=== PATIENT | female | born 1965 | race Caucasian/White ===

== ENCOUNTER 2019-05-21 11:39 | Emergency (ER) | payer BC ==
[~2019-05-21] VITALS: Ht 170.2 cm; Wt 80.6 kg
--- NOTE | 2019-05-21 12:08 | PHYS DOC ---
Past History Past Medical History: No Pertinent History Alcohol Use: Rarely Drug Use: None General Adult EDM: Chief Complaint: SYNCOPE HPI: HPI: 53-year-old female who presents for evaluation of syncope. She had a syncopal episode falling out of her Jeep 4 days ago. Her was able to catch her prior to any head injury. This is preceded by a warm sensation with tingling of the bilateral lower extremities that began to progress superiorly. She is also having intermittent tingling of the bilateral fingertips and toes. No prior history of anxiety or panic. No chest pain, dyspnea, outpatient, headache or vision changes, focal weakness, dizziness. Review of Systems: Review of Systems: General: No fevers, chills. Eyes: No blurred vision, diplopia. ENT: No nasal congestion, sore throat. CV: No chest pain, edema. Reports syncope. Resp: No shortness of breath, cough. GI: No abdominal pain, nausea, vomiting. : No dysuria, hematuria. Neuro: No headache, dizziness, weakness. Reports tingling sensation. MSK: No myalgia, arthralgia, back pain. Skin: No acute rash, lesion. Heart Score: Risk Factors: Risk Factors: DM, Current or recent (<one month) smoker, HTN, HLP, family history of CAD, obesity. Risk Scores: Score 0 - 3: 2.5% MACE over next 6 weeks - Discharge Home Score 4 - 6: 20.3% MACE over next 6 weeks - Admit for Clinical Observation Score 7 - 10: 72.7% MACE over next 6 weeks - Early Invasive Strategies Physical Exam: PE: Gen: NAD. Well nourished. Head: NC/AT Eyes: No scleral icterus. No conjunctival injection. PERRL. ENT: MMM. Posterior OP clear. Neck: Supple. NT. CV: RRR. Peripheral pulses intact. Resp: CTAB. Abd: Soft. NT. ND. MSK: No peripheral cyanosis. No edema. Neuro: A&Ox3. Strength & sensation grossly intact throughout. No dysmetria. No aphasia or dysarthria. No visual field cut. No facial asymmetry. No jason- neglect. NIH stroke score 0. Skin: Warm. Dry. Psych: Appropriate mood & affect. EKG: EKG: EKG at 1158. Sinus rhythm. Heart rate 67. Normal intervals. No STEMI. Interpreted by me. Radiology/Procedures: Radiology/Procedures: EXAM: Chest, single view. HISTORY: Syncope. COMPARISON: None. FINDINGS: A frontal view of the chest is obtained. There is no infiltrate, pleural effusion or pneumothorax. There is a prominent cardiac silhouette. IMPRESSION: No acute pulmonary finding. Electronically signed by: Ingrid Knox MD (05/21/2019 12:23 PM) [id number] EXAM: CT HEAD WITHOUT CONTRAST. HISTORY: Syncope. TECHNIQUE: Computed tomography of the head was performed without intravenous contrast. One or more of the following individualized dose reduction techniques were utilized for this examination: 1. Automated exposure control. 2. Adjustment of the mA and/or kV according to patient size. 3. Use of iterative reconstruction technique. COMPARISON: None. FINDINGS: There is no intracranial hemorrhage. Small foci of hypoattenuation within the left parietal white matter most likely reflect mild chronic microangiopathic change. The ventricles are normal in size and position. The visualized paranasal sinuses appear clear. The orbits are unremarkable. The temporal bones are unremarkable. The calvarium reveals no suspicious lesions. There are atherosclerotic calcifications of the vertebral arteries. IMPRESSION: 1. No acute intracranial findings. 2. Scattered small foci of white matter hypoattenuation are nonspecific but most likely reflect mild chronic microangiopathic change. Electronically signed by: Carmen Chamberlain MD (05/21/2019 12:24 PM) [id number] Course & Med Decision Making: Course & Med Decision Making Pertinent Labs and Imaging studies reviewed. (See chart for details) In summary, 53-year-old female who presents for evaluation of syncopal episode without injury 4 days ago, preceded by bilateral tingling and "warmth". Hemodynamically stable. Unremarkable cardiorespiratory and neurological examination. Doubt stroke given bilaterality of the paresthesia. EKG shows no acute injury pattern. Troponin negative. Lab work is otherwise unremarkable with the exception of mildly elevated BUN/creatinine ratio, receiving IV fluid bolus. Noncontrast head CT is negative. Chest x-ray clear. The patient otherwise is well-appearing and nontoxic. I feel that the patient is otherwise low risk from a risk stratification standpoint in terms of syncope. Outpatient PMD follow-up. Return precautions given. Juliana Disclaimer: Juliana Disclaimer: This electronic medical record was generated, in whole or in part, using a voice recognition dictation system. Departure Departure: Impression: Primary Impression: Syncope Additional Impression: Paresthesia Disposition: 01 HOME, SELF-CARE Condition: STABLE Referrals: PCPAURORA (PCP) Patient Instructions: Syncope Additional Instructions: Please follow up with your primary physician. Increase your fluid intake. YANIRA DON DO May 21, 2019 12:08
[2019-05-21] MEDS ORDERED: IV NORMAL SALINE 1,000ML 1,000 ML IV ONE (12:15)
--- NOTE | 2019-05-21 12:25 | EKG ---
[address] [address] Test Date: 2019-05-21 Test Time: 11:58:01 Pat Name: RICHARD DON Department: Room: Gender: F [employer] Dis[employer]: : 1965 Requested By: YANIRA DON Order Number: [id number] Reading MD: Jonel Hurtado Measurements Intervals [place] Rate: 67 P: 39 [place]: 178 QRS: 48 QRSD: 90 T: 45 QT: 390 QTc: 415 Interpretive Statements SINUS RHYTHM Electronically Signed On 05-23-2019 10:02:24 CDT by Jonel Hurtado
--- NOTE | 2019-05-21 12:26 | RAD ---
EXAM: CT HEAD WITHOUT CONTRAST. HISTORY: Syncope. TECHNIQUE: Computed tomography of the head was performed without intravenous contrast. One or more of the following individualized dose reduction techniques were utilized for this examination: 1. Automated exposure control. 2. Adjustment of the mA and/or kV according to patient size. 3. Use of iterative reconstruction technique. COMPARISON: None. FINDINGS: There is no intracranial hemorrhage. Small foci of hypoattenuation within the left parietal white matter most likely reflect mild chronic microangiopathic change. The ventricles are normal in size and position. The visualized paranasal sinuses appear clear. The orbits are unremarkable. The temporal bones are unremarkable. The calvarium reveals no suspicious lesions. There are atherosclerotic calcifications of the vertebral arteries. IMPRESSION: 1. No acute intracranial findings. 2. Scattered small foci of white matter hypoattenuation are nonspecific but most likely reflect mild chronic microangiopathic change. Electronically signed by: Carmen Chamberlain MD (05/21/2019 12:24 PM) [id number]
--- NOTE | 2019-05-21 12:26 | RAD ---
EXAM: Chest, single view. HISTORY: Syncope. COMPARISON: None. FINDINGS: A frontal view of the chest is obtained. There is no infiltrate, pleural effusion or pneumothorax. There is a prominent cardiac silhouette. IMPRESSION: No acute pulmonary finding. Electronically signed by: Ingrid Knox MD (05/21/2019 12:23 PM) [id number]
[2019-05-21 13:19] LABS: BASO # 0.1 x10^3/uL (0.0-0.2); BASO % 1 % (0-3); EOS # 0.2 x10^3/uL (0.0-0.7); EOS % 4 % (0-3); HEMATOCRIT 37.4 % (36.0-47.0); HEMOGLOBIN 12.4 g/dL (12.0-15.5); LYMPH # 1.6 x10^3/uL (1.0-4.8); LYMPH % 33 % (24-48); MEAN CORPUSCULAR HEMOGLOBIN 31 pg (25-35); MEAN CORPUSCULAR HGB CONC 33 g/dL (31-37); MEAN CORPUSCULAR VOLUME 93 fL (79-100); MONO # 0.5 x10^3/uL (0.0-1.1); MONO % 11 % (0-9); NEUT # 2.4 x10^3uL (1.8-7.7); NEUT % 51 % (31-73); PLATELET COUNT 208 x10^3/uL (140-400); RED BLOOD COUNT 4.01 x10^6/uL (3.50-5.40); RED CELL DISTRIBUTION WIDTH 15.1 % (11.5-14.5); WHITE BLOOD COUNT 4.8 x10^3/uL (4.0-11.0)
[2019-05-21 13:22] LABS: CALCIUM 9.1 mg/dL (8.5-10.1); CREATININE 0.7 mg/dL (0.6-1.0); GFR 86.9; POTASSIUM 4.4 mmol/L (3.5-5.1)
[2019-05-21 13:28] LABS: ALBUMIN 3.6 g/dL (3.4-5.0); ALBUMIN/GLOBULIN RATIO 1.4 (1.0-1.7); MAGNESIUM 1.9 mg/dL (1.8-2.4); TOTAL BILIRUBIN 0.4 mg/dL (0.2-1.0); TOTAL PROTEIN 6.2 g/dL (6.4-8.2)
[2019-05-21 14:47] VITALS: BP 154/65
== END 2019-05-21 14:42 | disposition home or self-care (01) ==
LOC: ER 11:39
DX: R55 Syncope and collapse (principal); R20.2 Paresthesia of skin; V98.8XXA Other specified transport accidents, initial encounter; Y93.89 Activity, other specified; Y92.89 Other specified places as the place of occurrence of the external cause; Y99.8 Other external cause status
CPT/HCPCS: 36415; 70450; 71045; 80053; 83735; 84484; 85025; 93005; 96360; 99285-25; J7030

== ENCOUNTER 2019-11-18 04:45 | Emergency (ER) | payer BC ==
[~2019-11-18] VITALS: Ht 152.4 cm; Wt 86.0 kg
[2019-11-18] MEDS ORDERED: IV RINGERS SOLUTION,LACTATED 1,000 ML IV SCH (05:09)
[2019-11-18] MEDS ORDERED: MORPHINE SULFATE 2 MG/ML DISP.SYRIN. IV/SQ PRN (05:15)
[2019-11-18] MEDS ORDERED: ONDANSETRON PF 4 MG/2 ML VIAL. IVP ONE (05:15)
--- NOTE | 2019-11-18 05:16 | PHYS DOC ---
Past History Past Medical History: No Pertinent History (CANDACE DISLA MD) Past Surgical History: Appendectomy (CANDACE DISLA MD) Alcohol Use: None Drug Use: None (CANDACE DISLA MD) General Adult EDM: Chief Complaint: ABDOMINAL PAIN HPI: HPI: Patient is a 54-year-old female coming in for right upper quadrant abdominal pain and distention. States over the past month she has had worsening pain mostly on the right but feels like her abdomen is distended now. Has had intermittent constipation and diarrhea. Denies any change in urination. Also has had a couple episodes of emesis. Feels like she is unable to eat due to the fullness of her abdomen. No fevers, cough, chest pain, urinary complaints. Patient states the pain was initially localized to the right upper quadrant but now radiates around her back and front of her abdomen. Emesis has been nonbloody nonbilious. Denies any blood in her stools. Has surgical history of appendectomy and lumpectomy. Has a family history significant for breast cancer in her mother. Fair water but denies any significant alcohol or IV drug use. (CANDACE DISLA MD) Review of Systems: Review of Systems: Constitutional: Denies fever or chills Eyes: Denies change in visual acuity HENT: Denies nasal congestion or sore throat Respiratory: Denies cough or shortness of breath Cardiovascular: Denies chest pain or edema GI: Abdominal pain or distention, worse on right. Nausea and vomiting, intermittent diarrhea and constipation : Denies dysuria Musculoskeletal: Denies back pain or joint pain Integument: Denies rash Neurologic: Denies headache, focal weakness or sensory changes Endocrine: Denies polyuria or polydipsia Lymphatic: Denies swollen glands Psychiatric: Denies depression or anxiety (CANDACE DISLA MD) Heart Score: Risk Factors: Risk Factors: DM, Current or recent (<one month) smoker, HTN, HLP, family history of CAD, obesity. Risk Scores: Score 0 - 3: 2.5% MACE over next 6 weeks - Discharge Home Score 4 - 6: 20.3% MACE over next 6 weeks - Admit for Clinical Observation Score 7 - 10: 72.7% MACE over next 6 weeks - Early Invasive Strategies (CANDACE DISLA MD) Allergies: Allergies: Allergies Coded Allergies Type Severity Reaction Last Updated Verified No Known Drug Allergies 05/21/19 No (CANDACE DISLA MD) Physical Exam: PE: Constitutional: Well developed, well nourished, no acute distress, non-toxic appearance. [] HENT: Normocephalic, atraumatic, bilateral external ears normal, oropharynx moist, no oral exudates, nose normal. [] Eyes: PERRLA, EOMI, conjunctiva normal, no discharge. [] Neck: Normal range of motion, no tenderness, supple, no stridor. [] Cardiovascular:Heart rate regular rhythm, no murmur [] Lungs & Thorax: Bilateral breath sounds clear to auscultation [] Abdomen: Guarding, positive Deluca's, no rebound, no fluid wave [] Skin: Warm, dry, no erythema, no rash. [] Back: No tenderness, no CVA tenderness. [] Extremities: No tenderness, no cyanosis, no clubbing, ROM intact, no edema. [] Neurologic: Alert and oriented X 3, normal motor function, normal sensory function, no focal deficits noted. [] Psychologic: Affect normal, judgement normal, mood normal. [] (CANDACE DISLA MD) PE: Constitutional: Well developed, well nourished, no acute distress, non-toxic appearance HENT: Normocephalic, atraumatic Eyes: Conjunctiva normal, no discharge Neck: Normal range of motion, no tenderness, supple Lungs & Thorax: No respiratory distress, equal chest rise and fall Abdomen: Distended, right upper and lower quadrant tenderness on palpation, no rebound tenderness, no guarding Skin: Warm, dry, no erythema, no rash Neurologic: Alert and oriented X 3, no focal deficits noted Psychologic: Affect normal, judgment normal (JEANNE HANNA DO) Current Patient Data: Vital Signs: Vital Signs Date Time Temp Pulse Resp B/P (MAP) Pulse Ox O2 Delivery O2 Flow Rate FiO2 11/18/19 05:03 97.6 92 18 143/116 (125) 97 Room Air (CANDACE DISLA MD) EKG: EKG: [] (CANDACE DISLA MD) Radiology/Procedures: Radiology/Procedures: [] (CANDACE DISLA MD) Radiology/Procedures: PROCEDURE: CT ABD PELV W/ IV CONTRST ONLY Exam: CT abdomen/pelvis with intravenous contrast Indication: Right upper quadrant abdominal pain Comparison: None Technique: Helical CT imaging performed of the abdomen and pelvis after administration of 75 mL Omnipaque 300 intravenous intravenous contrast. Sagittal and coronal reformats were obtained. One or more of the following individualized dose reduction techniques were utilized for this examination: 1. Automated exposure control 2. Adjustment of the mA and/or kV according to patient size 3. Use of iterative reconstruction technique. Findings: Inherently limited evaluation without intravenous contrast. Lower chest: The lung bases are clear. The heart is normal in size. Liver: The liver is normal in size. A subcentimeter hypodensity in the left hepatic lobe is too small characterize. Gallbladder/Biliary Tree: Normal. Pancreas: Normal. Spleen: Normal. Adrenal Glands: Normal. Kidneys/Ureters/Bladder: Kidneys are normal. Ureters are nondistended. Urinary bladder is decompressed. Reproductive Organs: The uterus and ovaries are not well-visualized. Stomach, small bowel, and colon: Normal. Vasculature: IVC is flattened by a large cystic mass, described below. The abdominal aorta is normal in caliber. Mild calcified aortic atherosclerosis. Lymph Nodes: No lymphadenopathy. Peritoneum and retroperitoneum: There is a large cystic mass in the abdomen and pelvis measuring 27.4 x 26.0 x 14.8 cm (CC by transverse by AP), extending from the pelvis to the level of T12-L1. This is homogeneous with simple fluid density and has some thin internal septations. This most likely arises from one of the ovaries. This displaces and causes mass effect on the bowel, liver spleen pancreas and kidneys. It causes flattening of the inferior vena cava. Small amount of free fluid in the pelvis. No free air. Bones: There is grade 1 spondylolisthesis and severe degenerative disc disease at L4-L5. Moderate bilateral facet arthrosis at this level. Lower thoracic degenerative disc disease is noted. Mild osteoarthrosis of the hips Impression: Very large cystic mass in the abdomen and pelvis measuring 27.4 x 26.0 x 14.8 cm, displacing and causing mass effect on adjacent organs and bowel, and flattening the inferior vena cava. 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 Electronically signed by: Candace Swanson MD (11/18/2019 6:59 AM) [id number] (JEANNE HANNA DO) Course & Med Decision Making: Course & Med Decision Making Pertinent Labs and Imaging studies reviewed. (See chart for details) Labs unremarkable, pending CT at shift change. Care transitioned to Dr Hanna. [] (CANDACE DISLA MD) Course & Med Decision Making 0600- 54-year-old female presents with 1 month history of progressive abdominal pain primarily to the right side. Sign out received from Dr. Disla for patient with significant distention. Labs reviewed. UA with + Nitrites. Empiric antibiotics given. Patient seen and evaluated by myself. CT results with large cystic mass appearing to arise from ovary which is concerning for a neoplastic process. Discussed case with Dr. Nilsa Ewing (MANUFACTURING TECHNOLOGY PROFESSOR oncology) at [facility]. In agreement that patient can follow as outpatient in her office in next 1-2 days. Copies of laboratory and CT results and images provided to patient to take with her for outpatient follow-up. Patient stable for discharge with outpatient follow-up with PCP/MANUFACTURING TECHNOLOGY PROFESSOR oncology. Discussed findings and plan with patient, who acknowledges understanding and agreement. (JEANNE HANNA DO) Dragon Disclaimer: Dragon Disclaimer: This electronic medical record was generated, in whole or in part, using a voice recognition dictation system. (CANDACE DISLA MD) Departure Departure: Impression: Primary Impression: Ovarian cystic mass Qualified Codes: N83.201 - Unspecified ovarian cyst, right side Additional Impression: UTI (urinary tract infection) Qualified Codes: N30.00 - Acute cystitis without hematuria Disposition: HOME SELF CARE/HOMELESS Condition: STABLE Referrals: RAJINDER WATKINS (PCP) Patient Instructions: Pelvic Mass, Urinary Tract Infection, [id number] Additional Instructions: Please follow closely with Dr. Nilsa Ewing [facility], [address] [place] [address] Scripts Sennosides/Docusate Sodium (Colace 2-in-1 Tablet) 1 Each Tablet 1 TAB PO QHS for constipation for 30 Days, #30 TAB 0 Refills Prov: JEANNE HANNA DO 11/18/19 Cephalexin (KEFLEX) 500 Mg Capsule 1 CAP PO TID for UTI for 7 Days, #21 CAP 0 Refills Prov: JEANNE HANNA DO 11/18/19 Ondansetron (ONDANSETRON ODT) 4 Mg Tab.rapdis 1 TAB PO PRN Q6-8HRS PRN for NAUSEA, #16 TAB Prov: JEANNE HANNA DO 11/18/19 Hydrocodone Bit/Acetaminophen (NORCO 5-325 TABLET) 1 Each Tablet 0.5-1 TAB PO Q4-6HRS PRN for PAIN, #20 TAB Prov: JEANNE HANNA DO 11/18/19 CANDACE DISLA MD Nov 18, 2019 05:16 JEANNE HANNA DO Nov 18, 2019 07:07
[2019-11-18] MEDS ORDERED: IOHEXOL 300 MG/ML 75 ML VIAL. IV ONE (05:30)
[2019-11-18] MEDS ORDERED: CONTRAST GIVEN. MC PRN (05:30)
[2019-11-18 05:31] LABS: BASO # 0.1 x10^3/uL (0.0-0.2); BASO % 1 % (0-3); EOS # 0.1 x10^3/uL (0.0-0.7); EOS % 2 % (0-3); HEMATOCRIT 40.8 % (36.0-47.0); HEMOGLOBIN 13.5 g/dL (12.0-15.5); LYMPH % 28 % (24-48); MEAN CORPUSCULAR HEMOGLOBIN 31 pg (25-35); MEAN CORPUSCULAR HGB CONC 33 g/dL (31-37); MEAN CORPUSCULAR VOLUME 94 fL (79-100); MONO # 0.5 x10^3/uL (0.0-1.1); MONO % 7 % (0-9); NEUT # 4.6 x10^3uL (1.8-7.7); NEUT % 62 % (31-73); PLATELET COUNT 234 x10^3/uL (140-400); RED BLOOD COUNT 4.32 x10^6/uL (3.50-5.40); RED CELL DISTRIBUTION WIDTH 14.1 % (11.5-14.5); WHITE BLOOD COUNT 7.4 x10^3/uL (4.0-11.0)
[2019-11-18 05:36] LABS: CALCIUM 9.2 mg/dL (8.5-10.1); CREATININE 0.8 mg/dL (0.6-1.0); GFR 74.2; POTASSIUM 3.6 mmol/L (3.5-5.1)
[2019-11-18 05:41] LABS: ALBUMIN 3.8 g/dL (3.4-5.0); TOTAL BILIRUBIN 0.9 mg/dL (0.2-1.0); TOTAL PROTEIN 7.7 g/dL (6.4-8.2)
--- NOTE | 2019-11-18 07:01 | RAD ---
Exam: CT abdomen/pelvis with intravenous contrast Indication: Right upper quadrant abdominal pain Comparison: None Technique: Helical CT imaging performed of the abdomen and pelvis after administration of 75 mL Omnipaque 300 intravenous intravenous contrast. Sagittal and coronal reformats were obtained. One or more of the following individualized dose reduction techniques were utilized for this examination: 1. Automated exposure control 2. Adjustment of the mA and/or kV according to patient size 3. Use of iterative reconstruction technique. Findings: Inherently limited evaluation without intravenous contrast. Lower chest: The lung bases are clear. The heart is normal in size. Liver: The liver is normal in size. A subcentimeter hypodensity in the left hepatic lobe is too small characterize. Gallbladder/Biliary Tree: Normal. Pancreas: Normal. Spleen: Normal. Adrenal Glands: Normal. Kidneys/Ureters/Bladder: Kidneys are normal. Ureters are nondistended. Urinary bladder is decompressed. Reproductive Organs: The uterus and ovaries are not well-visualized. Stomach, small bowel, and colon: Normal. Vasculature: IVC is flattened by a large cystic mass, described below. The abdominal aorta is normal in caliber. Mild calcified aortic atherosclerosis. Lymph Nodes: No lymphadenopathy. Peritoneum and retroperitoneum: There is a large cystic mass in the abdomen and pelvis measuring 27.4 x 26.0 x 14.8 cm (CC by transverse by AP), extending from the pelvis to the level of T12-L1. This is homogeneous with simple fluid density and has some thin internal septations. This most likely arises from one of the ovaries. This displaces and causes mass effect on the bowel, liver spleen pancreas and kidneys. It causes flattening of the inferior vena cava. Small amount of free fluid in the pelvis. No free air. Bones: There is grade 1 spondylolisthesis and severe degenerative disc disease at L4-L5. Moderate bilateral facet arthrosis at this level. Lower thoracic degenerative disc disease is noted. Mild osteoarthrosis of the hips Impression: Very large cystic mass in the abdomen and pelvis measuring 27.4 x 26.0 x 14.8 cm, displacing and causing mass effect on adjacent organs and bowel, and flattening the inferior vena cava. 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 Electronically signed by: Candace Swanson MD (11/18/2019 6:59 AM) [id number]
[2019-11-18 07:22] LABS: BILIRUBIN,URINE NEG (NEG); CLARITY,URINE HAZY; COLOR,URINE YELLOW; GLUCOSE,URINE NEG (NEG); NITRITE,URINE POS (NEG); UROBILINOGEN,URINE 0.2 mg/dL (0.2 mg/dL)
[2019-11-18 07:23] LABS: BACTERIA,URINE MOD /HPF (0-FEW); SQUAMOUS EPITHELIAL CELL,UR FEW /LPF
[2019-11-18] MEDS ORDERED: cefTRIAXone SODIUM 1 GM VIAL ONE (07:50)
[2019-11-18] MEDS ORDERED: IV NORMAL SALINE 50ML 50 ML ONE (07:50)
[2019-11-18] MEDS ORDERED: SENN-121 PO (08:14)
[2019-11-18] MEDS ORDERED: HYDR-3165 PO (08:14)
[2019-11-18] MEDS ORDERED: CEPH-264 PO (08:14)
[2019-11-18] MEDS ORDERED: ONDA4TAB12 PO (08:14)
[2019-11-18 08:29] VITALS: BP 138/84
== END 2019-11-18 08:29 | disposition home or self-care (01) ==
LOC: ER 04:45
DX: N30.00 Acute cystitis without hematuria (principal); N83.201 Unspecified ovarian cyst, right side; Z90.89 Acquired absence of other organs
CPT/HCPCS: 36415; 74177; 80053; 81001; 83605; 83690; 85025; 85610; 85730; 87086; 96361; 96365; 96375; 99285; J0696; J2270; J2405; J3010; J7120; 87077; 87186

== ENCOUNTER → 2020-08-05 | Outpatient (CLI) | payer SELFPAY ==
[~2020-08-05] MED LIST: CEPH-264 PO; HYDR-3165 PO; ONDA4TAB12 PO; SENN-121 PO
--- NOTE | 2020-08-05 15:17 | RAD ---
EXAM: Pelvis and left hip, 3 views. HISTORY: Pain. COMPARISON: None. FINDINGS: A frontal view of the pelvis and 2 views of the left hip are obtained. There is a suspected mildly fracture involving the left superior pubic ramus, uncertain chronicity. There is degenerative subchondral cyst formation involving the femoral heads. There is minimal marginal femoral head spurr ing. There is lumbar scoliosis and degenerative change centered at L4-L5. There are clips within the pelvis. There is mild degenerative subchondral sclerosis involving the sacroiliac joints. There are b enign bone islands. IMPRESSION: 1. Suspected mildly displaced fracture the left superior pubic ramus, of uncertain chronicity. 2. 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 3. Lumbar scoliosis and degenerative change predominantly at L4-L5. Electronically signed by: Ingrid Knox MD (08/05/2020 3:15 PM) [id number]
== END ==
LOC: RAD 13:42
PROVIDERS: ATTEND Family Medicine
DX: M16.12 Unilateral primary osteoarthritis, left hip (principal); M41.86 Other forms of scoliosis, lumbar region
CPT/HCPCS: 73502

== ENCOUNTER → 2020-10-21 | Outpatient (CLI) | payer BC ==
--- NOTE | 2020-10-21 11:43 | RAD ---
EXAM: DUAL ENERGY X-RAY ABSORPTIOMETRY (DEXA). HISTORY: Postmenopausal screening. FINDINGS: The lowest measured T-score is -2.0 in the right femoral neck, based on a bone mineral dens ity of 0.697 g/cm^2. Refer to the worksheets for full detail. No comparison examinations are available. IMPRESSION: 1. Low bone mass. Bone mineral density yields a T-score between -1.0 and -2.5. Fracture risk is incre ased. 2. FRAX report: Not calculated. METHODOLOGY: Dual energy x-ray absorptiometry was performed to measure bone mineral density. The foll owing analysis is based on the 2019 Official Positions of the International Society for Clinical Dens itometry: Measurements of the hips and the average of L1-L4 are preferred. When the spine and/or hip cannot be feasibly measured or interpreted, or in the setting of hyperparathyroidism, distal radial bone minera l density may be measured. The lumbar spine T-score is based on the average bone mineral density of L1-L4. In the setting of art ifact or anatomic abnormality, some lumbar levels may be excluded, and the remaining levels used for calculation. A single lumbar level is not used for diagnosis, and if only a single level is available for assessment, another anatomic site will be used to assign a diagnosis. The hip T-score is based on the bone mineral density measurement of the femoral neck or total proxima l femur of either side, whichever is lowest. Bilateral mean values are not used for diagnosis. The forearm T-score is derived from 33% of the distal radius of the nondominant forearm. Electronically signed by: Ingrid Knox MD (10/21/2020 11:40 AM) [id number]
== END ==
LOC: DXRAD 10:42
PROVIDERS: ATTEND Family Medicine
DX: S32.502D Unspecified fracture of left pubis, subsequent encounter for fracture with routine healing (principal); M85.88 Other specified disorders of bone density and structure, other site; M46.1 Sacroiliitis, not elsewhere classified; X58.XXXD Exposure to other specified factors, subsequent encounter
CPT/HCPCS: 77080